=== PATIENT | female | born 1985 | race Two or more races ===

== ENCOUNTER 2021-10-27 07:48 | Emergency (ER) | payer SELFPAY ==
[~2021-10-27] VITALS: Ht 152.4 cm; Wt 82.3 kg
--- NOTE | 2021-10-27 09:37 | RAD ---
EXAM: Chest, single view. HISTORY: Adenopathy. Pruritus. COMPARISON: None. FINDINGS: A frontal view of the chest obtained. There are decreased lung volumes with associated vasc ular crowding. There is no consolidation, pleural effusion or pneumothorax. The heart is normal in si ze. IMPRESSION: No acute pulmonary finding. Electronically signed by: Donya Dominguez MD (10/27/2021 9:35 AM) [facility]
--- NOTE | 2021-10-27 10:01 | PHYS DOC ---
Past Medical History Past Surgical History: No Surgical History Smoking Status: Never Smoker Alcohol Use: None General Adult EDM: Chief Complaint: ITCHING HPI: HPI: 35 yo F, pmhx obese, pw 5 months of diffuse pruritis all over body but no rash. No jaundice. Denies any pmhx/pshx/allergies. No new shampoos/soaps/cream/detergents. No travel. Denies alcohol. No animal or dust contacts for work. Review of Systems: Review of Systems: Constitutional: Denies fever or chills. [] Eyes: Denies change in visual acuity. [] HENT: Denies nasal congestion or sore throat. [] Respiratory: Denies cough or shortness of breath. [] Cardiovascular: Denies chest pain or edema. [] GI: Denies abdominal pain, nausea, vomiting, bloody stools or diarrhea. [] : Denies dysuria. [] Musculoskeletal: Denies back pain or joint pain. [] Integument: Denies rash. [] Neurologic: Denies headache, focal weakness or sensory changes. [] Endocrine: Denies polyuria or polydipsia. [] Lymphatic: Denies swollen glands. [] Psychiatric: Denies depression or anxiety. [] Heart Score: C/O Chest Pain: No Risk Factors: Risk Factors: DM, Current or recent (<one month) smoker, HTN, HLP, family history of CAD, obesity. Risk Scores: Score 0 - 3: 2.5% MACE over next 6 weeks - Discharge Home Score 4 - 6: 20.3% MACE over next 6 weeks - Admit for Clinical Observation Score 7 - 10: 72.7% MACE over next 6 weeks - Early Invasive Strategies Allergies: Allergies: Allergies Coded Allergies Type Severity Reaction Last Updated Verified No Known Drug Allergies 10/27/21 No Physical Exam: PE: Constitutional: Obese, Well developed, well nourished, no acute distress, non- toxic appearance. [] HENT: Normocephalic, atraumatic, bilateral external ears normal, oropharynx moist, no oral exudates, nose normal. [] Eyes: PERRLA, EOMI, conjunctiva normal, no discharge, sclera anicteric Neck: Normal range of motion, no tenderness, supple, no stridor. [] Cardiovascular:Heart rate regular rhythm, no murmur [] Lungs & Thorax: Bilateral breath sounds clear to auscultation [] Abdomen: Bowel sounds normal, soft, no tenderness, no masses, no pulsatile masses. [] Skin: no jaundice, Warm, dry, no erythema, no rash. faint excoriations over hands Back: No tenderness, no CVA tenderness. [] Extremities: No tenderness, no cyanosis, no clubbing, ROM intact, no edema. [] Neurologic: Alert and oriented X 3, normal motor function, normal sensory function, no focal deficits noted. [] Psychologic: Affect normal, judgement normal, mood normal. [] Current Patient Data: Labs: Laboratory Tests Test 10/27/21 09:55 POC Urine HCG, Qualitative Hcg negative (Negative) Vital Signs: Vital Signs Date Time Temp Pulse Resp B/P (MAP) Pulse Ox O2 Delivery O2 Flow Rate FiO2 10/27/21 08:23 97.9 71 16 94/50 (65) 96 Room Air 97.9 EKG: EKG: [] Radiology/Procedures: Radiology/Procedures: [] Course & Med Decision Making: Course & Med Decision Making Additional Social History: PMD from non-affiliated facility. Patient Lives at home. Family History: Non-pertinent to today's complaint. Nursing Notes Reviewed Previous Medical Records requested via [facility] Web: Reviewed by me. EMERGENT LABS AND DIAGNOSTIC STUDIES: Results were reviewed and interpreted by me as below Chest X-ray was interpreted by Radiology, also reviewed by myself. PROCEDURE: PORTABLE CHEST 1V IMPRESSION: No acute pulmonary finding. EMERGENCY DEPARTMENT COURSE/ MEDICAL DECISION MAKING: The patient was placed on a security monitor, continuous pulse oximetry and was given supplemental oxygen. I examined the patient, evaluated and addressed patient's chief complaint. Patient presents with 5 months x diffuse pruritis without rash. Low suspicion for infectious/insect related rash, contact dermatitis, eczema. Patient tried hydrocortisone cream and hydroxyzine but states only little improvement and doesn't like how it make her drowsy. r/o metabolic derangments such as liver disease, polycythemia, DM etc. Found to have mildly elevated alkphos. Abdominal ultrasound showing fatty liver, hepatic steatosis. vitals wnl and well appearing on reassessment. Suspicious for pruritis 2/2 fatty liver/hepatic steatosis. Recommended benadryl as needed and urgent Gastroenterology f/u through her PMD. Patient agrees with plan. Stable for dc home. The patient understands that todays Emergency Department evaluation does not represent a comprehensive medical workup, and it is impossible to diagnose all possible illnesses from a single Emergency Department visit. The patient verbalized understanding that it is absolutely necessary to have follow-up with regular primary care physician within 1-2 days for more detailed workup and continued exam. I explained the findings and plan to the patient, who expressed verbal understanding and agreed with plan for discharge and follow up. The patient was given after care instructions and welcomed to return to the ED for re-evaluation in 8-12 hours, especially for any new or worsening s ymptoms. Patient's blood pressure was elevated (>120/80) but appears stable without evidence of end organ damage, malignant hypertension, hypertensive emergency or urgency. The patient was counseled about the risks of hypertension and urged to pursue outpatient monitoring and therapy within a week with their primary care physician. The patient was stable at the time of discharge. DIAGNOSTIC IMPRESSION: 1. Pruritis 2. fatty liver 3. hepatic steatosis DISPOSITION: Disposition: Discharge Home. Condition: Improved Follow-Up: PMD, GI Prescriptions: Benadryl Return to the Emergency Department for new or worsening symptoms. Jose Disclaimer: Jose Disclaimer: This electronic medical record was generated, in whole or in part, using a voice recognition dictation system. Departure Departure Impression: Primary Impression: Generalized pruritus Additional Impressions: Fatty liver Hepatic steatosis Disposition: HOME / SELF CARE / HOMELESS Condition: STABLE Referrals: UNKNOWN PCP NAME (PCP) Scripts Diphenhydramine Hcl (BENADRYL) 25 Mg Capsule 1 CAP PO QHS for 30 Days, #30 CAP 0 Refills Prov: STEVE BOYD MD 10/27/21 STEVE BOYD MD October 27, 2021 10:01
[2021-10-27 10:05] LABS: CALCIUM 9.1 mg/dL (8.5-10.1); CREATININE 0.8 mg/dL (0.6-1.0); GFR 82.6; POTASSIUM 3.6 mmol/L (3.5-5.1)
[2021-10-27 10:11] LABS: DIRECT BILIRUBIN 0.1 mg/dL (0.0-0.2); TOTAL BILIRUBIN 0.3 mg/dL (0.2-1.0)
[2021-10-27 10:23] LABS: FREE T4 0.87 ng/dL (0.76-1.46); THYROID STIM HORMONE (TSH) 4.769 uIU/mL (0.358-3.74)
[2021-10-27 10:28] LABS: BASO % 0 % (0-3); EOS # 0.1 x10^3/uL (0.0-0.7); EOS % 1 % (0-3); HEMATOCRIT 40.5 % (36.0-47.0); HEMOGLOBIN 13.9 g/dL (12.0-15.5); LYMPH # 3.2 x10^3/uL (1.0-4.8); LYMPH % 32 % (24-48); MEAN CORPUSCULAR HEMOGLOBIN 32 pg (25-35); MEAN CORPUSCULAR HGB CONC 34 g/dL (31-37); MEAN CORPUSCULAR VOLUME 92 fL (79-100); MONO # 0.6 x10^3/uL (0.0-1.1); MONO % 6 % (0-9); NEUT # 6.1 x10^3/uL (1.8-7.7); NEUT % 61 % (31-73); PLATELET COUNT 270 x10^3/uL (140-400); RED BLOOD COUNT 4.39 x10^6/uL (3.50-5.40); RED CELL DISTRIBUTION WIDTH 12.9 % (11.5-14.5); WHITE BLOOD COUNT 10.1 x10^3/uL (4.0-11.0)
[2021-10-27 10:37] LABS: PREG TEST PT QUAL NEGATIVE (NEG)
[2021-10-27 11:38] LABS: AMORPHOUS SEDIMENT,UR PRESENT /HPF; BACTERIA,URINE 0 /HPF (0-FEW); RBC,URINE 0 /HPF (0-2); WBC,URINE 0 /HPF (0-4)
--- NOTE | 2021-10-27 12:59 | RAD ---
US ABDOMEN COMPLETE History: Elevated alkaline phosphatase Comparison: None. Technique: Sonographic examination of the abdomen. Findings: Pancreas: Visualized portions are unremarkable. Liver: The liver measures 14.4 cm. Liver echotexture is diffusely echogenic with poor through transm ission. No focal hepatic lesions. Hepatopetal flow in the portal vein. Gallbladder: The gallbladder is not identified. Bile ducts: The common duct measures 4 mm. Right kidney: 10.1 cm length. No mass or hydronephrosis. Spleen: 11.0 cm length. No masses. Left kidney: 11.6 cm length. No mass or hydronephrosis. Bladder: Decompression limits evaluation. Aorta/IVC: Visualized portions are unremarkable. Other: No ascites. Impression: 1. Hepatic steatosis. 2. Nonvisualization of the gallbladder which may be due to prior cholecystectomy versus complete dec ompression. Electronically signed by: Aj Klein MD (10/27/2021 12:57 PM) [id number]
[2021-10-27] MEDS ORDERED: DIPH25CA58 PO (13:02)
[2021-10-27 13:17] VITALS: BP 115/72
== END 2021-10-27 13:20 | disposition home or self-care (01) ==
LOC: ER 07:48
DX: L29.9 Pruritus, unspecified (principal); K76.0 Fatty (change of) liver, not elsewhere classified
CPT/HCPCS: 36415; 71045; 76700; 80053; 80076; 81001; 81025; 83036; 84439; 84443; 84481; 84703; 85025; 99285-25